=== PATIENT | male | born 1985 | race Caucasian/White ===

== ENCOUNTER 2020-02-13 22:03 | Emergency (ER) | payer SELFPAY ==
[2020-02-13 22:09] VITALS: BP 163/113; PULSE 89; TEMP 98.5; BMI 24.3
[2020-02-13] MEDS ORDERED: PENICILLIN G BENZATHINE 1,200,000 UNIT/2 ML PFS IM ONE ×2 (22:38→22:46)
[2020-02-13] MEDS ORDERED: ACETAMINOPHEN 325 MG TABLET (FP) PO ONE (22:39)
[2020-02-13] MEDS ORDERED: DEXAMETHASONE 4 MG TABLET (FP) PO ONE (22:39)
--- NOTE | 2020-02-13 22:42 | PDOC ---
Attending Attestation - Resident Resident Name: Ryan Diaz - ED Attending Attestation I have performed the following: I have examined & evaluated the patient, The case was reviewed & discussed with the resident, I agree w/resident's findings & plan - HPI HPI: 02/13/20 22:39 Pt comes with sore throat x 2 days. He works for [employer] and states that there was a teagan at work who was ill. Pt states that he has pain in the pharynx and going down the right side of the neck. He has no swelling and no voice change or difficulty swallowing. Only pain. Pt is concerned that the pain is progressing. He had taken meds for seasonal allergies to no avail. Pt has no significant PMHx - Physicial Exam PE: 02/13/20 22:41 Exudates on his uvula; red injected pharynx. No swelling or displacement of tissues or [employer] 02/13/20 22:41 HEENT otherwise normal Voice normal Heart RRR 02/13/20 22:42 Agree with resident exam - Medical Decision Making 02/13/20 22:42 Pt requesting Bicillin shot. He will be treated with abx, decadron, and tylenol OTC pain meds to go home with. 02/13/20 23:43 Pt refusing to wait for the strep result; he tlerated the Bicillin shot 02/13/20 23:56 official rapid strep culture is negative However, given pt's symptoms and exudates, he was clinically strep + Discharge - Discharge Information Problems reviewed: Yes Clinical Impression/Diagnosis: Pharyngitis, Sore throat Condition: Good Disposition: HOME - Follow up/Referral - Patient Discharge Instructions Additional Instructions: Stay hydrated, well nourished, and take tylenol and/or ibuprofen at home for pain management as directed by the the reclamation supervisor. Follow up with your PCP for further monitoring and workup of your condition. If your results come back positive, we will contact you to inform you as well as send an antibiotic to the pharmacy. Return to the ED if your symptoms worsen and/or you experience difficulty breathing, difficulty swallowing, chest pain, shortness of breath, ra shes, fatigue, fevers. - Post Discharge Activity Work/Back to School Note: Back to Work
[2020-02-13] MEDS ORDERED: ACETAMINOPHEN 325 MG TABLET (FP) ONE (22:45)
--- NOTE | 2020-02-13 23:08 | PDOC ---
History of Present Illness - General Chief Complaint: Sore Throat Stated Complaint: SORE THROAT Time Seen by Provider: 02/13/20 22:24 - History of Present Illness Initial Comments: 34 yo male with no significant PMH presents with sore throat. Patient says the sore throat started yesterday with associated pain when he eats/drinks/swallows. 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 He has taken claritin thinking it was allergies without resolved. He endorses cough, sob, and a swollen throat. He denies fevers, chills, abd pain, cp. Past History - Medical History Allergies/Adverse Reactions: Allergies Allergy/AdvReac Type Severity Reaction Status Date / Time No Known Allergies Allergy Verified 02/13/20 22:09 COPD: No HTN: Yes (not medicated) - Psycho-Social/Smoking History Smoking History: Current every day smoker Information on smoking cessation initiated: No - Substance Abuse Hx (Audit-C & DAST Scrn) How often the patient has a drink containing alcohol: 2-4 times / month Score: In Men: 4 or > Positive; In Women: 3 or > Positive: 2 Screen Result (Pos requires Nsg. Audit-10AR): Negative In the last yr the pt used illegal drug/Rx for NonMed reason: Yes Score: Yes response is considered Positive: 1 Screen Result (Positive result requires Nsg. DAST-10): Positive Review of Systems - Review of Systems Able to Perform ROS?: Yes Constitutional: No: Chills, Fever HEENTM: No: Recent change in vision, Double Vision Respiratory: Yes: Cough. No: Shortness of Breath Cardiac (ROS): No: Chest Pain, Palpitations, Syncope, Chest Tightness ABD/GI: No: Diarrhea, Nausea, Vomiting : No: Burning, Dysuria Musculoskeletal: No: Joint Pain, Muscle Pain Integumentary: No: Erythema, Flushing, Lesions Neurological: No: Headache, Dizziness Psychiatric: No: Anxiety, Depression, Mood Swings Endocrine: No: Intolerance to Cold, Intolerance to Heat Hematologic/Lymphatic: No: Anemia, Easy Bruising *Physical Exam - Vital Signs Last Vital Signs Temp Pulse Resp BP Pulse Ox 98.5 F 89 18 163/113 H 97 02/13/20 22:05 02/13/20 22:05 02/13/20 22:05 02/13/20 22:05 02/13/20 22:05 - Physical Exam General Appearance: Yes: Appropriately Dressed. No: Apparent Distress HEENT: positive: EOMI, Normal Voice, Other (tonsillar exudates) Neck: positive: Lymphadenopathy (R). negative: Tender, Rigid Respiratory/Chest: positive: Lungs Clear, Normal Breath Sounds. negative: Respiratory Distress Cardiovascular: positive: Regular Rhythm, Regular Rate, S1, S2 Gastrointestinal/Abdominal: positive: Flat, Soft. negative: Tender Extremity: positive: Normal Inspection, Normal Range of Motion Integumentary: positive: Normal Color, Dry, Warm Neurologic: positive: Fully Oriented, Alert, Normal Mood/Affect ED Treatment Course - Medications Given in the ED: ED Medications Discontinued Medications Generic Name Dose Route Start Last Admin Trade Name Stevieq PRN Reason Stop Dose Admin Acetaminophen 650 mg 02/13/20 22:39 02/13/20 22:54 Tylenol - PO 02/13/20 22:40 650 mg ONCE ONE Administration Penicillin G Benzathine 1,200,000 unit 02/13/20 22:38 02/13/20 22:54 Bicillin L-A - IM 02/13/20 22:39 1,200,000 unit ONCE ONE Administration Medical Decision Making - Medical Decision Making 34 yo male with no significant PMH presents with 1 day hx of sore throat with multiple sick contact at work Tylenol, Dexamethasone, Penicillin G administered Strept Throat Test is negative BP was repeated at 155/90. Pt advised to follow up with PCP for BP control. Pt stable for discharge. Discharge - Discharge Information Problems reviewed: Yes Clinical Impression/Diagnosis: Pharyngitis, Sore throat Condition: Good Disposition: HOME - Admission No - Follow up/Referral - Patient Discharge Instructions Additional Instructions: Stay hydrated, well nourished, and take tylenol and/or ibuprofen at home for pain management as directed by the the wire stitcher. Follow up with your PCP for further monitoring and workup of your condition. If your results come back positive, we will contact you to inform you as well as send an antibiotic to the pharmacy. Return to the ED if your symptoms worsen and/or you experience difficulty breathing, difficulty swallowing, chest pain, shortness of breath, rashes, fatigue, fevers. - Post Discharge Activity Work/Back to School Note: Back to Work
== END 2020-02-13 23:13 | disposition home or self-care (01) ==
LOC: JER 22:03
DX: J02.9 Acute pharyngitis, unspecified (principal)
CPT/HCPCS: 87070; 87880; 99284-25

== ENCOUNTER 2020-02-17 19:39 | Emergency (ER) | payer SELFPAY ==
[2020-02-17 19:50] VITALS: BP 143/85; PULSE 89; TEMP 97.8; BMI 28.4
[2020-02-17] MEDS ORDERED: KETOROLAC TROMETHAMINE 60 MG/2 ML VIAL IM ONE (19:59)
--- NOTE | 2020-02-17 20:04 | PDOC ---
History of Present Illness - General Chief Complaint: RX Refill Stated Complaint: FOLLOW UP Time Seen by Provider: 02/17/20 19:47 - History of Present Illness Initial Comments: 02/17/20 20:01 34-year-old male treated for strep throat negative strep test given a shot of penicillin presents for evaluation of increasing throat pain. Past History - Medical History Allergies/Adverse Reactions: Allergies Allergy/AdvReac Type Severity Reaction Status Date / Time No Known Allergies Allergy Verified 02/13/20 22:09 Home Medications: Ambulatory Orders Methylprednisolone [Medrol Dose Larry] 4 mg PO ASDIR #21 tablet 02/17/20 COPD: No HTN: Yes (not medicated) - Psycho-Social/Smoking History Smoking History: Never smoked Review of Systems - Review of Systems Constitutional: No: Fever HEENTM: Yes: Throat Pain *Physical Exam - Vital Signs Last Vital Signs Temp Pulse Resp BP Pulse Ox 97.8 F 89 20 143/85 100 02/17/20 19:43 02/17/20 19:43 02/17/20 19:43 02/17/20 19:43 02/17/20 19:43 - Physical Exam 02/17/20 20:01 HEAD: NC/AT EYES: Conjuntiva clear Ears: Canals and TM's normal NOSE: No d/c THROAT: Moist mucous membrances, oral pharanx erythemic with exudate, uvula midline NECK: Supple without adenopathy CARDIAC: S1 S2 LUNGS: CTA Full and Equal breath sounds ABDOMEN: Soft NT ND MS: Full ROM in all joints without edema NEUROLOGIC: No gross sensory or motor deficits, NVID SKIN: Normal color and temperature no lesions or rashes Medical Decision Making - Medical Decision Making 02/17/20 20:01 Strep negative. Most likely viral mono. Monospot Toradol Medrol Dosepak fo llow-up with ENT I have reviewed the pathophysiology with the patient. They are in agreement with the treatment plan all questions were answered to their satisfaction. Understanding for follow-up without fail was also conveyed to the patient. Again they are in agreement. Discharge - Discharge Information Problems reviewed: Yes Clinical Impression/Diagnosis: Pharyngitis Condition: Stable Disposition: HOME - Admission No - Additional Discharge Information Prescriptions: Methylprednisolone [Medrol Dose Larry] 4 mg PO ASDIR #21 tablet - Follow up/Referral Referrals: Matthew Goyla MD [Staff Physician] - - Patient Discharge Instructions Additional Instructions: Your strep test is negative. Please start the steroids tomorrow which will help with the pain. Do not take any anti-inflammatories while on the Medrol Dosepak. You may take Tylenol as directed. Warm salt water gargles will also help with your pain. Return to the emergency room for worsening symptoms and without fail follow-up with ear nose and throat doctor in 1 to 2 days for further evaluation and treatment options. Please call the emergency room if you do not hear from us in the next 48 hours or thereafter for results of your mono test. - Post Discharge Activity
[2020-02-17] MEDS ORDERED: KETOROLAC TROMETHAMINE 60 MG/2 ML VIAL ONE (20:34)
== END 2020-02-17 21:00 | disposition home or self-care (01) ==
LOC: JERFT 19:39 → JER 19:39 → JERFT 21:00
PROC: 3E0233Z Introduction of Anti-inflammatory into Muscle, Percutaneous Approach (ICD-10-PCS; principal; 2020-02-17)
DX: J02.9 Acute pharyngitis, unspecified (principal)
CPT/HCPCS: 99284-25